=== PATIENT | female | born 1980 | race Caucasian/White ===

== ENCOUNTER 2020-11-29 12:20 | Emergency (ER) | payer OTHER ==
[2020-11-29 12:23] VITALS: BP 112/81; PULSE 72; RESP 18; TEMP 98.3
--- NOTE | 2020-11-29 12:32 | ED ---
General Adult HPI - General Chief complaint: Skin/Abscess/Foreign Body Stated complaint: rash Time Seen by Provider: 11/29/20 12:25 Source: patient, RN notes reviewed, old records reviewed Mode of arrival: ambulatory Limitations: no limitations - History of Present Illness Initial comments: 40-year-old female otherwise healthy presenting with rash. Rash is itchy, throughout her entire body including face, scalp, torso and extremities. She denies any new exposures, no new foods, no recent changes in medication. No fever. No URI symptoms. No difficulty breathing or tongue swelling. No vomiting. - Related Data Previous Rx's Medication Instructions Recorded diphenhydrAMINE [Benadryl] 25 mg PO TID PRN #21 capsule 11/29/20 methylPREDNISolone Dose Pack 4 mg PO DIRECTED #21 package 11/29/20 [Medrol Dose Pack] Allergies Allergy/AdvReac Type Severity Reaction Status Date / Time No Known Allergies Allergy Verified 11/29/20 12:23 Review of Systems ROS Statement: Those systems with pertinent positive or pertinent negative responses have been documented in the HPI. ROS Other: All systems not noted in ROS Statement are negative. Past Medical History Past Medical History: No Reported History History of Any Multi-Drug Resistant Organisms: None Reported Past Surgical History: Orthopedic Surgery Past Psychological History: No Psychological Hx Reported Smoking Status: Current every day smoker Past Alcohol Use History: Occasional Past Drug Use History: None Reported General Exam Limitations: no limitations General appearance: alert, in no apparent distress Head exam: Present: atraumatic, normocephalic Eye exam: Present: normal appearance, PERRL ENT exam: Present: normal exam, normal oropharynx, mucous membranes moist Neck exam: Present: normal inspection. Absent: tenderness, meningismus Respiratory exam: Present: normal lung sounds bilaterally. Absent: respiratory distress, wheezes Cardiovascular Exam: Present: regular rate, normal rhythm GI/Abdominal exam: Absent: distended Extremities exam: Present: normal capillary refill Neurological exam: Present: alert, oriented X3, CN II-XII intact, normal gait. Absent: motor sensory deficit Psychiatric exam: Present: normal affect, normal mood Skin exam: Present: warm, urticaria (Diffuse urticaria, erythematous raised rash) Course Vital Signs 11/29/20 12:21 Temperature 98.3 F Pulse Rate 72 Respiratory 18 Rate Blood Pressure 112/81 O2 Sat by Pulse 98 Oximetry Medical Decision Making - Medical Decision Making 40-year-old female presenting with diffuse rash, rashes consistent with urticaria. Unknown exposure. No other complaints, patient well-appearing with stable vitals. We will trial Benadryl and Medrol Dosepak. Patient given strict return parameters. Disposition Clinical Impression: Urticaria Disposition: HOME SELF-CARE Condition: Good Instructions (If sedation given, give patient instructions): Urticaria (ED) Prescriptions: diphenhydrAMINE [Benadryl] 25 mg PO TID PRN #21 capsule PRN Reason: Itching methylPREDNISolone Dose Pack [Medrol Dose Pack] 4 mg PO DIRECTED #21 package Is patient prescribed a controlled substance at d/c from ED?: No Referrals: Jasivr Arzate MD [Primary Care Provider] - 1-2 days Time of Disposition: 12:31
== END 2020-11-29 12:43 | disposition home or self-care (01) ==
LOC: EC 12:20
DX: L50.9 Urticaria, unspecified (principal); F17.200 Nicotine dependence, unspecified, uncomplicated
CPT/HCPCS: 99282